=== PATIENT | male | born 1960 | race Caucasian/White ===

== ENCOUNTER → 2024-06-20 15:53 | Outpatient (REF) | payer BC, SELFPAY | LOC: HWRCS 15:53 | PROVIDERS: ATTENDING PHYSICIAN Nuclear Medicine Nuclear Cardiology; FAMILY PHYSICIAN Internal Medicine | DX: I10 Essential (primary) hypertension (principal) | CPT/HCPCS: 93306 ==

== ENCOUNTER 2024-09-18 06:12 | Day surgery (SDC) | payer BC, SELFPAY ==
[2024-09-18] VITALS (12 sets, daily range): BP systolic 103–150; BP diastolic 64–93; BMI 34.6
--- NOTE | 2024-09-18 07:10 | HP.FOC2 ---
Focused History & Physical
Chief Complaint
HPI:
Chief Complaint: Umbilical hernia
HPI / Indication for Planned Procedure: Patient is a 63-year-old male with a longstanding history of an umbilical hernia that has been slowly enlarging in size over the years. He now has some more awareness of the hernia being present and
occasional slight discomfort but no pain. No associated GI or symptoms. No symptoms suggestive of incarceration or obstruction. No past abdominal surgical history. He presents today for scheduled operative correction.
Relevant Past Medical History: Other (Hypertension, GERD with Troy's esophagus, vertigo, metabolic syndrome, hyperlipidemia, microscopic hematuria)
Relevant Social History: Negative
Relevant Family History: Negative
Relevant Past Surgical History: Positive for (Cardiac catheterization with stent placement, colonoscopy)
Review of Systems
Review of Pertinent Systems: All Systems Negative
Medication
See Medication form for detailed medications: Yes
Medication List (including Herbals & OTC):
amlodipine 10 mg tablet 10 mg PO DAILY 12/31/22
aspirin 81 mg chewable tablet 81 mg PO DAILY 12/31/22
nebivolol 10 mg tablet 5 mg PO DAILY 12/31/22
rosuvastatin 20 mg tablet 20 mg PO DAILY 12/31/22
pantoprazole 40 mg tablet,delayed release 40 mg PO DAILY #90 tabs 01/01/23
spironolactone 25 mg tablet 25 mg PO BID 09/15/24
Medications Reviewed: Yes
Allergies and Reactions
Patient has Allergies: Yes
Noted Allergies and Reactions:
Allergy/AdvReac Type Severity Reaction Status Date / Time
cat dander Allergy Itching Verified 09/15/24 15:09
Pertinent Physical Exam
All Other Systems: Negative
Head/Neck: Normal
Lungs: Normal
Heart: Normal
Abdomen: Other (Reducible umbilical hernia, fascial defect up to 3 cm.)
Extremities: Normal
Neurological: Normal
Diagnosis / Assessment
63-year-old male presenting for scheduled operative correction symptomatic umbilical hernia
Plan / Procedure
Robotic assisted laparoscopic repair umbilical hernia with mesh
Anesthesia/Sedation to be done by Anesthesia Provider: Yes
--- NOTE | 2024-09-18 07:12 | W.SUR.PREOP ---
Pre-Operative Surgical Note
-
I have examined this patient prior to the performance of the scheduled procedure.
The patient's condition is unchanged from the time of the current History and
Physical and the patient is able to undergo the scheduled procedure.
[2024-09-18] MEDS: TYLENOL 1000 MG PO (10:47)
[2024-09-18] MEDS: NORMOSOL-R/PLASMALYTE-A 1000 IV (10:48)
--- NOTE | 2024-09-18 14:48 | W.IMMPOSTOP ---
Surgical Immed Post Op Note
-
Primary Surgeon: Luke Pham MD
Assisting Surgeon: Liza Garcia PA-C
Pre-op Diagnosis: Umbilical hernia
Post-op Diagnosis: Umbilical hernia 2.5 cm
Procedure Performed: Robotic assisted laparoscopic JAYNA repair umbilical hernia with mesh; Ventralight ST 15 cm x 10 cm
Anesthesia Type: GETA +0.25% Marcaine with epi
Specimen / Cultures: None
Estimated Blood Loss: 6 mL
Complications: None immediate
Operative Findings: Umbilical hernia with 2.5 cm fascial defect and a few filmy omental adhesions. Transabdominal preperitoneal repair but left side of the peritoneal flap thin therefore barrier coated mesh utilized for underlay preperitoneal
repair. Fascial defect closed with 0 PDS strata fix. Ventralight ST 15 cm x 10 cm -secured with interrupted 2-0 Vicryl as well as a running continuous 2-0 PDS STRATAFIX spiral stitch. Left side peritoneal flap closed with 2-0 Monocryl STRATAFIX
spiral. Mesh introduced via 12 mm trocar placed through umbilical fascial defect with an infraumbilical incision that was then utilized to facilitate recreating the umbilical stalk. 3 left lateral 8 mm robotic trocar sites.
The assistance of Liza Hooper PA-C was required due to the complexity of the procedure. During the procedure Liza Hooper PA-C assisted with port placement, robotic instrumentation and suture material exchanges, and closure of the surgical incision
sites. I was present for the entirety of the operative procedure.
--- NOTE | 2024-09-18 14:52 | OR.RPT ---
Operative Report
Operative Report
Date of operative procedure: 09/18/2024
Primary Surgeon: Luke Pham MD
Assembler Wire Mesh Gate: Liza Hooper PA-C
Pre-op Diagnosis: Umbilical hernia
Post-op Diagnosis: Umbilical hernia, 2.5 cm
Procedure Performed: Robotic assisted laparoscopic JAYNA repair umbilical hernia with mesh; Ventralight ST 15 cm x 10 cm
Anesthesia: GETA +0.25% Marcaine
Specimen / Cultures: None/none
Estimated Blood Loss: 6 mL
Complications: None immediate
Indications for Operative Procedure: Patient is a 63-year-old male with a longstanding history of an umbilical hernia that has been slowly enlarging in size over the years. He now has some more awareness of the hernia being present and occasional
slight discomfort but no pain. No associated GI or symptoms. No symptoms suggestive of incarceration or obstruction. No past abdominal surgical history.
I reviewed with the patient treatment options. He wished to pursue operative correction. We discussed various operative approaches to repair and elected to proceed with a robotic assisted laparoscopic umbilical herniorrhaphy with mesh. The
anticipated operative procedure was fully reviewed in detail with the patient preoperatively obtaining written informed consent. See office visit consultation for full details regarding discussions.
Brief Summary of Operative Findings: Umbilical hernia with 2.5 cm fascial defect and a few filmy omental adhesions. Transabdominal preperitoneal repair but left side of the peritoneal flap thin therefore barrier coated mesh utilized for underlay
preperitoneal repair. Fascial defect closed with 0 PDS strata fix along horizontal orientation. Ventralight ST 15 cm x 10 cm - secured with interrupted 2-0 Vicryl as well as a running continuous 2-0 PDS STRATAFIX spiral stitch. Left side
peritoneal flap closed with 2-0 Monocryl STRATAFIX spiral. Mesh introduced via 12 mm trocar placed through umbilical fascial defect with an infraumbilical incision that was then utilized to facilitate recreating the umbilical stalk. 3 left lateral
8 mm robotic trocar sites.
Operation in Detail: The patient was identified in the preoperative holding area. I confirmed the umbilical surgical site/location with the patient and his preoperatively. He was interviewed by the anesthesia and nursing staff then brought
back to the operating room. The patient was placed on the operating table in supine position. The bilateral upper extremities were carefully padded and tucked at the side utilizing the arm guard positioning system. Pneumatic compression boots
were on the bilateral lower extremities. Following induction of general endotracheal anesthesia the patient was administered Ancef 2 g IV for prophylactic antibiotic coverage. The patient's anterior abdominal wall was now widely and sterilely
prepped with ChloraPrep and then draped in the usual manner. The surgical time out was completed and the procedure was confirmed.
I initially proceeded with Veress needle insufflation at the left subcostal midclavicular line location. Once insufflated to 12 mmHg pressure then an 8 mm trocar was placed along the left lateral abdominal wall residential between the left costal
margin and the left ASIS and a palms breath out from the anticipated left lateral boarder of the mesh placement. The robotic scope was now inserted. There was no evidence of iatrogenic injury from access. The Veress needle was withdrawn. A left
subcostal lateral 8 mm trocar and a left lower quadrant 8 mm trocar just superior/medial to the ASIS were now placed under direct visualization. The patient was then transition into slight Trendelenburg and right side down to aid in exposure of the
anterior abdominal wall. The robot was then docked.
At the surgeon console inspection confirmed the presence of a reducible umbilical hernia containing preperitoneal fat, peritoneum of the hernia sac and a few filmy omental adhesions which were easily released. There were no additional incidental
intra-abdominal findings.
I initially began with the creation of a peritoneal flap along the left lateral abdominal wall. The flap was begun by incising the peritoneum along the left lateral aspect of the central abdominal wall fat pad cranially about 5cm superior to the
fascial defect. The peritoneal incision was now carried down further laterally into the left lower quadrant in an arc like manner with preservation of the posterior sheath. Along the left lateral side the peritoneum was quite diminutive and thin
outside of the central abdominal wall fat pad. A few small openings were made in this area as well. The flap was further developed towards the midline where the central abdominal wall fat pad was taken down with the peritoneum superiorly and
inferiorly to the fascial defect. The hernia sac and contents were now completely reduced with care to preserve the dermis of the umbilical stalk and its subcutaneous blood supply. The fascial edges were cleared circumferentially. The peritoneal
flap along the entire length was now mobilized well onto the right lateral side of the abdominal wall to allow for mesh placement with good circumferential coverage. The right sided flap was more robust as I was able to recruit some of the
posterior sheath fibers to maintain the integrity of the right sided peritoneal flap.
The umbilical fascial defect was now measured to be 2.5 cm in horizontal length. Fascial edges were confirmed to be cleared. No additional hernias in the area were noted. Due to the size of the defect and thinning of the left-sided flap a 12 mm
trocar was placed through an infraumbilical skin incision and tunneled into the umbilical hernia defect. Through this trocar site suture material and mesh were placed. The defect was then closed with a running continuous 0 PDS STRATAFIX along the
horizontal orientation. The suture was then run back upon itself in a reverse direction for a double layer closure and to lock the barbed suture in place. A Ventralight ST mesh measuring 15 cm vertically by 10 cm in width was then was positioned
within the peritoneal flap in an underlay fashion and centered over the fascial defect. The mesh was then secured centrally to the linea alba and right lateral periphery at 4 separate locations with interrupted 2-0 Vicryl suture. The mesh was also
secured with a running continuous 2-0 PDS from the 12:00 to the 6 o'clock position along the left lateral side of the mesh as this would likely fall outside of the border of the peritoneal flap. Hemostasis was now assured. The left lateral margin
of the peritoneal flap was closed with a running continuous 2-0 Monocryl STRATAFIX suture run in a Kaylin stitch fashion to approximate it to the mesh. The peritoneal covering of the mesh was otherwise completely intact.
At this point the robot was undocked. All sponge, instrument and needle counts were confirmed to be correct x 2. The CO2 insufflation was now fully evacuated out of the abdominal cavity. The 8 mm trocar sites were removed as well as the flexible
suction catheter. Skin was closed with 4-0 Monocryl. The 12 mm infraumbilical incision was slightly enlarged. The umbilical dermis was mobilized and secured to the subcutaneous tissues with interrupted 3-0 Vicryl to help recreate the umbilical
stalk. Dee's layer was closed with interrupted 3-0 Vicryl as well. Skin was closed with buried erupted 4-0 Monocryl. A Steri-Strip was placed on the incision, Xeroform gauze on the umbilical skin followed by negative pressure Tegaderm gauze
dressing was applied. Sterile surgical glue dressings were applied to the robotic trocar sites. The patient tolerated the procedure well and was transferred to the recovery unit for routine postoperative monitoring.
The assistance of Liza Hooper PA-C was required due to the complexity of surgery. During the procedure Liza Hooper PA-C assisted with port placement, robotic instrument and suture material exchanges as well as closure of the surgical sites. I
was present for the entirety of the operative procedure.
== END 2024-09-18 17:00 | disposition home or self-care (01) ==
LOC: SDS 06:12
PROVIDERS: ATTENDING PHYSICIAN Surgery; FAMILY PHYSICIAN Internal Medicine
DX: K42.9 Umbilical hernia without obstruction or gangrene (principal)
CPT/HCPCS: 49591; C1713